=== PATIENT | male | born 1985 ===

== ENCOUNTER → 2020-07-15 10:40 | Outpatient (BNVA) | payer OTHER, SELFPAY | PROVIDERS: PCP Internal Medicine; Referring Provider Internal Medicine; Visit Provider Nurse Practitioner | DX: Z76.89 Persons encountering health services in other specified circumstances (principal) ==

== ENCOUNTER 2020-07-27 12:34 | Outpatient (REF) | payer OTHER, SELFPAY | END 2020-07-27 12:35 | disposition home or self-care (01) | LOC: HO.LAB 12:34 | PROVIDERS: Visit Provider Internal Medicine | DX: Z20.828 Contact with and (suspected) exposure to other viral communicable diseases (principal) | CPT/HCPCS: U0003 ==

== ENCOUNTER 2020-12-16 12:19 | Outpatient (REF) | payer OTHER, SELFPAY ==
[2020-12-16 13:19] LABS: COVID-19 Test Negative (Negative)
== END 2020-12-16 12:20 | disposition home or self-care (01) ==
LOC: HO.LAB 12:19
PROVIDERS: Visit Provider Internal Medicine
DX: Z20.822 Contact with and (suspected) exposure to COVID-19 (principal)
CPT/HCPCS: 36415; 87635; C9803

== ENCOUNTER → 2021-01-04 09:58 | Outpatient (BNVA) | payer OTHER, SELFPAY | PROVIDERS: PCP Internal Medicine; Visit Provider Nurse Practitioner ==

== ENCOUNTER 2021-01-10 10:10 | Outpatient (REF) | payer OTHER, SELFPAY ==
[2021-01-10 10:59] LABS: MANUAL DIFF FLAG NO
[2021-01-10 11:13] LABS: Basophils Percent Auto 0.2 % (0-2); Eosinophils Percent Auto 0.7 % (0-4); Hematocrit 41.6 % (42-52); Hemoglobin 13.8 g/dl (14.0-18.0); Imm Gran Abs Auto 0.02 X10*3/uL (0.00-0.03); Imm Gran Pct Auto 0.3 % (0.0-0.4); Lymphocytes Absolute Auto 1.7 X10*3/uL (1.2-4.9); Lymphocytes Percent Auto 28.8 % (20-40); Mean Corpuscular HGB Conc 33.2 g/dl (31.0-36.0); Mean Corpuscular Hemoglobin 29.5 pg (27.0-33.0); Mean Corpuscular Volume 88.9 fL (80-98); Mean Platelet Volume 9.8 fL (9.4-12.4); Monocytes Absolute Auto 0.6 X10*3/uL (0.1-1.2); Monocytes Percent Auto 9.3 % (2-11); Neutrophils Absolute Auto 3.6 X10*3/uL (2.0-8.3); Neutrophils Percent Auto 60.7 % (45-73); Platelet Count 317 X10*3/uL (160-400); Red Blood Count 4.68 X10*6/uL (4.60-5.80); Red Cell Distribution Width 11.8 % (11.0-16.0); White Blood Count 5.9 X10*3/uL (4.8-10.8)
[2021-01-10 11:31] LABS: Anion Gap 12 (12-20); Blood Urea Nitrogen 8 mg/dL (9-16); Calcium 9.3 mg/dL (8.4-10.2); Carbon Dioxide 27 mmol/L (22-29); Chloride 109 mmol/L (96-108); Estimated Glomerular Filt Rate > 60; Glucose Fasting 94 mg/dL (60-99); Potassium 4.2 mmol/L (3.3-5.1); Sodium 144 mmol/L (135-145)
== END 2021-01-10 10:11 | disposition home or self-care (01) ==
LOC: HO.LAB 10:10
PROVIDERS: Absent Provider Nurse Practitioner; PCP Internal Medicine; Visit Provider Nurse Practitioner Family
DX: T14.8XXA Other injury of unspecified body region, initial encounter (principal)
CPT/HCPCS: 36415; 80048; 85025

== ENCOUNTER 2021-01-12 10:42 | Outpatient (REF) | payer OTHER, SELFPAY | END 2021-01-12 10:43 | disposition home or self-care (01) | LOC: HO.LNP 10:42 | PROVIDERS: Visit Provider Nurse Practitioner | DX: R10.10 Upper abdominal pain, unspecified (principal); K21.9 Gastro-esophageal reflux disease without esophagitis | CPT/HCPCS: 87338 ==

== ENCOUNTER 2021-01-13 10:11 | Outpatient (REF) | payer OTHER, SELFPAY ==
--- NOTE | ~2021-01-13 | US_ITS ---
EXAMINATION: US ABDOMEN COMPLETE CLINICAL INFORMATION: Upper abdominal pain, unspecified. COMPARISON: CT abdomen and pelvis 10/12/2012. TECHNIQUE: Real-time imaging of the abdominal viscera. FINDINGS: PANCREAS: Normal. ABDOMINAL AORTA: The proximal, mid, and distal segments are normal in caliber. INFERIOR VENA CAVA: Visualized portions are normal. LIVER: Normal. The liver is normal in size. The liver contour is normal. Parenchymal echogenicity is normal. No focal hepatic lesion. There is no intrahepatic biliary duct dilatation seen. GALLBLADDER: Normal. The gallbladder is physiologically distended without evidence of stones, sludge, polyps, wall thickening or pericholecystic fluid. COMMON BILE DUCT: Normal in caliber measuring 0.4 cm in diameter. RIGHT KIDNEY: Mid pole stone measuring 0.3 cm. No hydronephrosis or focal parenchymal lesions. The kidney measures 9.5 cm in maximum dimension. LEFT KIDNEY: Mid pole stone measuring 0.4 cm. No hydronephrosis or focal parenchymal lesions. The kidney measures 10.9 cm in maximum dimension. SPLEEN: Normal. The spleen measures 9.2 cm in maximum dimension. FREE FLUID: None. US/US abdomen complete IMPRESSION: Small, nonobstructing bilateral renal stones measuring 0.3 cm on the right and 0.4 cm on the left. No hydronephrosis. Otherwise unremarkable examination.
== END 2021-01-13 10:12 | disposition home or self-care (01) ==
LOC: HO.US 10:11
PROVIDERS: Visit Provider Nurse Practitioner
DX: R10.10 Upper abdominal pain, unspecified (principal)
CPT/HCPCS: 76700

== ENCOUNTER → 2021-02-21 09:25 | Outpatient (BNVA) | payer OTHER, SELFPAY | PROVIDERS: PCP Internal Medicine; Visit Provider Nurse Practitioner ==

== ENCOUNTER 2021-05-23 09:59 | Outpatient (REF) | payer OTHER, SELFPAY ==
--- NOTE | ~2021-05-23 | XR_ITS ---
EXAMINATION: LUMBAR SPINE AND SACRUM AND COCCYX X-RAYS CLINICAL INFORMATION: Pain COMPARISON: Previous lumbar spine x-ray April 2015 TECHNIQUE: 3 views of the lumbar spine and 3 views of the sacrum and coccyx FINDINGS: Lumbar spine: There may be a transitional vertebral body segment or 6 lumbar-type vertebral bodies. Bone alignment is normal. No fracture or dislocation is seen. Disc spaces are normal. Sacrum and coccyx: Bone alignment is normal. No fracture or dislocation is seen. The sacroiliac joints are normal. The soft tissues are normal. XR/XR sacrum coccyx min 2V IMPRESSION: Unremarkable exam.
--- NOTE | ~2021-05-23 | XR_ITS ---
EXAMINATION: LUMBAR SPINE AND SACRUM AND COCCYX X-RAYS CLINICAL INFORMATION: Pain COMPARISON: Previous lumbar spine x-ray April 2015 TECHNIQUE: 3 views of the lumbar spine and 3 views of the sacrum and coccyx FINDINGS: Lumbar spine: There may be a transitional vertebral body segment or 6 lumbar-type vertebral bodies. Bone alignment is normal. No fracture or dislocation is seen. Disc spaces are normal. Sacrum and coccyx: Bone alignment is normal. No fracture or dislocation is seen. The sacroiliac joints are normal. The soft tissues are normal. XR/XR lumbar spine 2-3V IMPRESSION: Unremarkable exam.
== END 2021-05-23 10:00 | disposition home or self-care (01) ==
LOC: HO.XRAY 09:59
PROVIDERS: PCP Internal Medicine; Visit Provider Nurse Practitioner
DX: K21.9 Gastro-esophageal reflux disease without esophagitis (principal); K64.9 Unspecified hemorrhoids; M53.3 Sacrococcygeal disorders, not elsewhere classified; M54.5 Low back pain
CPT/HCPCS: 72100; 72220; 99212

== ENCOUNTER → 2021-10-31 13:38 | Outpatient (BNVA) | payer OTHER, SELFPAY | PROVIDERS: PCP Internal Medicine; Referring Provider Internal Medicine; Visit Provider Nurse Practitioner | DX: K21.9 Gastro-esophageal reflux disease without esophagitis (principal); K64.9 Unspecified hemorrhoids; M53.3 Sacrococcygeal disorders, not elsewhere classified | CPT/HCPCS: 99212 ==

== ENCOUNTER → 2022-05-02 08:07 | Outpatient (BNVA) | payer OTHER, SELFPAY | PROVIDERS: PCP Internal Medicine; Referring Provider Internal Medicine; Visit Provider Nurse Practitioner | DX: K21.9 Gastro-esophageal reflux disease without esophagitis (principal); M53.3 Sacrococcygeal disorders, not elsewhere classified; K64.9 Unspecified hemorrhoids; Q76.49 Other congenital malformations of spine, not associated with scoliosis; Z79.899 Other long term (current) drug therapy | CPT/HCPCS: 99212 ==

== ENCOUNTER 2022-08-06 21:43 | Emergency (ER) | payer OTHER, SELFPAY ==
[2022-08-06 21:49] VITALS: BP 176/92; PULSE 87; RESP 18; TEMP 36.9; O2SAT 98; BMI 29.8
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
[2022-08-07] MEDS: cephALEXin 500 MG CAPSULE PO (00:29)
[2022-08-07] MEDS: Fluorescein Sodium STRIP 1 STRIP EYE-BOTH (00:29)
[2022-08-07] MEDS: Ketorolac Tromethamine 30 MG/ML VIAL IVPUSH (00:30)
[2022-08-07] MEDS: Lidocaine 4 % Cream KIT 4 APPL TOPICAL (00:32)
== END 2022-08-07 01:15 | disposition home or self-care (01) ==
PROVIDERS: Emergency Provider Internal Medicine; PCP Internal Medicine
DX: T20.20XA Burn of second degree of head, face, and neck, unspecified site, initial encounter (principal); T31.0 Burns involving less than 10% of body surface; R51.9 Headache, unspecified; X08.8XXA Exposure to other specified smoke, fire and flames, initial encounter; Y93.9 Activity, unspecified; Y92.9 Unspecified place or not applicable; Y99.9 Unspecified external cause status; Z79.899 Other long term (current) drug therapy
CPT/HCPCS: 99283; J1885

== ENCOUNTER 2023-03-15 22:29 | Emergency (ER) | payer OTHER, SELFPAY ==
[2023-03-15 22:33] VITALS: BP 122/58; PULSE 78; RESP 18; TEMP 37.7; O2SAT 98; BMI 31.8
[2023-03-15 23:37] VITALS: BP 112/65; PULSE 73; RESP 16; TEMP 38; O2SAT 97
--- NOTE | 2023-03-15 23:42 | PC.NURSE ---
Assumed care of pt, temp 100.4, pt c/o generalized body aches9/10 for pain, flu, cpvod and strep swabs sent to lab.
--- NOTE | 2023-03-15 23:47 | ED.GENADULT ---
HPI - General Adult General Chief complaint: Fever Stated complaint: Dizziness not feeling well Time Seen by Provider: 03/15/23 23:46 Source: patient Mode of arrival: ambulatory Limitations: no limitations History of Present Illness HPI narrative: Patient was healthy been having joint pain low-grade fever body aches since yesterday no rash known tick bites had some mosquito bites. No abdominal pain no nausea no vomiting no other family member sick has occasional cough with sore throat feel weak and dizzy no urinary symptoms Related Data Previous Rx's Medication Instructions Recorded famotidine 40 mg tablet 40 mg PO BEDTIME #90 tabs 05/02/22 bacitracin zinc 500 unit/gram 1 appl topical BID #28 grams 08/07/22 topical ointment (Antibiotic (bacitracin zinc)) hydroquinone 4 % topical cream 1 appl topical DAILY 30 days #28.4 09/07/22 grams doxycycline hyclate 100 mg tablet 100 mg PO BID #20 tabs 03/16/23 ibuprofen 600 mg tablet 600 mg PO Q6H PRN fever or pain 03/16/23 #30 tabs Allergies Allergy/AdvReac Type Severity Reaction Status Date / Time No Known Allergies Allergy Verified 03/15/23 22:33 Review of Systems Review of Systems: Yes all other systems are reviewed and are negative [facility] Past Medical History Medical History Pulled muscle Surgical History No pertinent past surgical history Family History Family History Father Cancer Mother Alive and well Maternal Grandfather Hypotension CVD (cardiovascular disease) Son Alive and well Son Autism Maternal Grandmother Hypertension Social History Social History Housing: Apartment Alcohol intake: former Patient Tobacco Use Status: Never used Tobacco e-Cigarette/Vaping Use: Never Used Second Hand Smoke Exposure: No Advance Directives: No Advance Directives Information Provided: Yes service: No Current occupational status: unemployed Cognitive needs: No Hearing needs: No Vision needs: No Physical Exam ED Vital Signs: Vital Signs - 24 hr 03/16/23 01:45 Temperature 98.7 F Pulse Rate 73 Respiratory Rate 16 Blood Pressure 107/64 Pulse Oximetry 97 Oxygen Delivery Method Room Air BMI result Body Mass Index 31.8 Appearance: Alert. Oriented X3. No acute distress. Eyes: No pallor or icterus ENT: Pharynx normal. Oral Mucosa moist Neck: Normal inspection. Neck supple. CVS: Normal heart rate and rhythm. Pulses normal. Respiratory: No respiratory distress. Equal air entry bilateral, no wheezing/rales/rhonchi Abdomen: Soft and nontender. Bowel sounds are present, no mass palpable, no CVA tenderness Skin: Skin warm and dry. Normal skin color. Normal skin turgor. Extremities: No lower extremity edema. No calf tenderness no significant joint swelling Neuro: Oriented X 3. No motor deficit. No sensory deficit.No cerebellar signs , cranial nerves II-XII intact Medications Administered Discontinued Medications Generic Name Dose Route Start Last Admin Trade Name Freq PRN Reason Stop Dose Admin Sodium Chloride 1,000 mls @ 999 mls/hr 03/16/23 00:22 03/16/23 02:06 Ns IV 03/16/23 01:22 Infused .Q1H1M ONE Infusion Ketorolac Tromethamine 30 mg 03/16/23 00:27 03/16/23 00:44 Ketorolac Tromethamine 30 Mg/Ml Vial IVPUSH 03/16/23 00:28 30 mg ONCE ONE Administration Medical Decision Making Medical Decision Making [facility] Narrative: Patient likely viral fever/tick-borne disease/babesiosis/anaplasmosis Differential Diagnosis Differential Diagnoses: The differential diagnosis associated with the presentation includes COVID/tick-borne disease/mosquito bone disease/viral Lab Data [facility] Lab Attestation statement: I reviewed the patient's lab results. 03/16/23 00:57 03/16/23 00:57 Labs: Lab Results 03/15/23 03/15/23 03/15/23 Range/Units 23:35 23:35 23:35 WBC (4.8-10.8) X10*3/uL RBC (4.60-5.80) X10*6/uL Hgb (14.0-18.0) g/dl Hct (42.0-52.0) % MCV (80.0-98.0) fL MCH (27.0-33.0) pg MCHC (31.0-36.0) g/dl RDW (11.0-16.0) % Plt Count (160-400) X10*3/uL MPV (9.4-12.4) fL Immature Gran % (Auto) (0.0-0.4) % Neut % (Auto) (45-73) % Lymph % (Auto) (20-40) % Tate % (Auto) (2-11) % Eos % (Auto) (0-4) % Baso % (Auto) (0-2) % Lymph # (Auto) (1.2-4.9) X10*3/uL Tate # (Auto) (0.1-1.2) X10*3/uL Eos # (Auto) (0.0-0.4) X10*3/uL Baso # (Auto) (0.0-0.2) X10*3/uL Abs Immat Gran (auto) (0.00-0.03) X10*3/uL Absolute Neuts (auto) (2.0-8.3) x10*3/uL Absolute Nucleated RBC (0.0-0.012) X10*3/uL Nucleated RBC % (auto) (0.0-0.2) /100WBC Sodium (135-145) mmol/L Potassium (3.3-5.1) mmol/L Chloride (96-108) mmol/L Carbon Dioxide (22-29) mmol/L Anion Gap (12-20) BUN (9-16) mg/dL Creatinine (0.5-1.4) mg/dL Estim Creat Clear Calc Estimated GFR Random Glucose (60-115) mg/dL Calcium (8.4-10.2) mg/dL Magnesium (1.6-2.6) mg/dL Total Bilirubin (0.0-1.0) mg/dL AST (5-37) U/L ALT (0-40) U/L Alkaline Phosphatase (39-117) U/L Total Protein (6.5-8.0) g/dL Albumin (3.5-5.0) g/dL COVID-19 (CAILIN) Negative (Negative) COVID-19 Clin Com See Note Influenza Type A (MAURICE) Negative (Negative) Influenza Type B (MAURICE) Negative (Negative) Influenza A & B Note See Note S. pyogenes GrpA MAURICE Negative (Negative) 03/16/23 03/16/23 Range/Units 00:57 00:57 WBC 8.5 (4.8-10.8) X10*3/uL RBC 4.22 L (4.60-5.80) X10*6/uL Hgb 12.8 L (14.0-18.0) g/dl Hct 37.0 L (42.0-52.0) % MCV 87.7 (80.0-98.0) fL MCH 30.3 (27.0-33.0) pg MCHC 34.6 (31.0-36.0) g/dl RDW 11.5 (11.0-16.0) % Plt Count 241 (160-400) X10*3/uL MPV 9.3 L (9.4-12.4) fL Immature Gran % (Auto) 0.1 (0.0-0.4) % Neut % (Auto) 75.8 H (45-73) % Lymph % (Auto) 15.0 L (20-40) % Tate % (Auto) 8.9 (2-11) % Eos % (Auto) 0.1 (0-4) % Baso % (Auto) 0.1 (0-2) % Lymph # (Auto) 1.3 (1.2-4.9) X10*3/uL Tate # (Auto) 0.8 (0.1-1.2) X10*3/uL Eos # (Auto) 0.0 (0.0-0.4) X10*3/uL Baso # (Auto) 0.0 (0.0-0.2) X10*3/uL Abs Immat Gran (auto) 0.01 (0.00-0.03) X10*3/uL Absolute Neuts (auto) 6.5 (2.0-8.3) x10*3/uL Absolute Nucleated RBC 0.000 (0.0-0.012) X10*3/uL Nucleated RBC % (auto) 0.0 (0.0-0.2) /100WBC Sodium 138 (135-145) mmol/L Potassium 3.2 L D (3.3-5.1) mmol/L Chloride 106 (96-108) mmol/L Carbon Dioxide 25 (22-29) mmol/L Anion Gap 10 L (12-20) BUN 12 (9-16) mg/dL Creatinine 0.92 (0.5-1.4) mg/dL Estim Creat Clear Calc 109.5 Estimated GFR > 60 Random Glucose 93 (60-115) mg/dL Calcium 8.7 D (8.4-10.2) mg/dL Magnesium 1.8 (1.6-2.6) mg/dL Total Bilirubin 0.6 (0.0-1.0) mg/dL AST 15 (5-37) U/L ALT 18 (0-40) U/L Alkaline Phosphatase 71 (39-117) U/L Total Protein 6.3 L (6.5-8.0) g/dL Albumin 3.9 (3.5-5.0) g/dL COVID-19 (CAILIN) (Negative) COVID-19 Clin Com Influenza Type A (MAURICE) (Negative) Influenza Type B (MAURICE) (Negative) Influenza A & B Note S. pyogenes GrpA MAURICE (Negative) Discharge Plan Discharge Clinical Impression: Fever Patient Disposition: Home, Self-Care Instructions: Fever in Adults (ED) Additional Instructions: Cause of your not very clear Possible mosquito born disease/tick-borne disease Start taking doxycycline for now pending final culture and serologies Tylenol/Motrin for pain/ fever Prescriptions: New ibuprofen 600 mg tablet 600 mg PO Q6H PRN (Reason: fever or pain) Qty: 30 0RF doxycycline hyclate 100 mg tablet 100 mg PO BID Qty: 20 0RF No Action bacitracin zinc [Antibiotic (bacitracin zinc)] 500 unit/gram ointment 1 appl topical BID Qty: 28 1RF hydroquinone 4 % cream 1 appl topical DAILY 30 Days Qty: 28.4 0RF famotidine 40 mg tablet 40 mg PO BEDTIME Qty: 90 2RF Interventions: ED Discharge Assessment Last Done: 03/16/23 03:28 Discharge Date/Time: 03/16/23 03:29
[2023-03-15 23:54] LABS: COVID-19 Test Negative (Negative); IDNOW Serial# 9DB6401D
[2023-03-15 23:55] LABS: IDNOW Serial# BCCEAD1C; Influenza A Negative (Negative); Influenza B2 Negative (Negative)
[2023-03-16] LABS: IDNOW Serial# 08D9AD1C; Strep A Nucleic Acid Negative (Negative)
[2023-03-16] MEDS: 0.9 % Sodium Chloride 1,000 ML 999 ML IV (00:44)
[2023-03-16] MEDS: Ketorolac Tromethamine 30 MG/ML VIAL IVPUSH (00:44)
[2023-03-16 01:02] LABS: MANUAL DIFF FLAG NO
[2023-03-16 01:04] LABS: Basophils Percent Auto 0.1 % (0-2); Eosinophils Percent Auto 0.1 % (0-4); Hemoglobin 12.8 g/dl (14.0-18.0); Imm Gran Abs Auto 0.01 X10*3/uL (0.00-0.03); Imm Gran Pct Auto 0.1 % (0.0-0.4); Lymphocytes Absolute Auto 1.3 X10*3/uL (1.2-4.9); Mean Corpuscular HGB Conc 34.6 g/dl (31.0-36.0); Mean Corpuscular Hemoglobin 30.3 pg (27.0-33.0); Mean Corpuscular Volume 87.7 fL (80.0-98.0); Mean Platelet Volume 9.3 fL (9.4-12.4); Monocytes Absolute Auto 0.8 X10*3/uL (0.1-1.2); Monocytes Percent Auto 8.9 % (2-11); Neutrophils Absolute Auto 6.5 x10*3/uL (2.0-8.3); Neutrophils Percent Auto 75.8 % (45-73); Platelet Count 241 X10*3/uL (160-400); Red Blood Count 4.22 X10*6/uL (4.60-5.80); Red Cell Distribution Width 11.5 % (11.0-16.0); White Blood Count 8.5 X10*3/uL (4.8-10.8)
[2023-03-16 01:21] LABS: Alanine Aminotransferase 18 U/L (0-40); Albumin Level 3.9 g/dL (3.5-5.0); Alkaline Phosphatase 71 U/L (39-117); Anion Gap 10 (12-20); Aspartate Amino Transferase 15 U/L (5-37); Bilirubin Total 0.6 mg/dL (0.0-1.0); Blood Urea Nitrogen 12 mg/dL (9-16); Calcium 8.7 mg/dL (8.4-10.2); Carbon Dioxide 25 mmol/L (22-29); Chloride 106 mmol/L (96-108); Creatinine Clr Calc Pharmacy 109.5; Estimated Glomerular Filt Rate > 60; Glucose Random 93 mg/dL (60-115); Magnesium 1.8 mg/dL (1.6-2.6); Potassium 3.2 mmol/L (3.3-5.1); Sodium 138 mmol/L (135-145); Total Protein 6.3 g/dL (6.5-8.0)
[2023-03-16 01:45] VITALS: BP 107/64; PULSE 73; RESP 16; TEMP 37.1; O2SAT 97
[2023-03-31 16:09] LABS: A. Phagocytophilum Ab IgG <1:64 (<1:64); A. Phagocytophilum Ab IgM <1:20 (<1:20); E. Chaffeensis Ab IgG <1:64 (<1:64); E. Chaffeensis Ab IgM <1:20 (<1:20)
[2023-04-01 12:23] LABS: Babesia IgG <1:64 titer (<1:64); Babesia IgM <1:20 titer (<1:20)
== END 2023-03-16 03:29 | disposition home or self-care (01) ==
PROVIDERS: Emergency Provider Internal Medicine
DX: R50.9 Fever, unspecified (principal); M79.10 Myalgia, unspecified site; Z20.822 Contact with and (suspected) exposure to COVID-19
CPT/HCPCS: 36415; 80053; 83735; 85025; 86666; 86753; 87207; 87502; 87635; 87651; 96361; 96374; 99284; J1885

== ENCOUNTER 2023-04-03 09:24 | Outpatient (AMB) | payer OTHER, SELFPAY ==
[2023-04-03 09:28] VITALS: BP 112/86; PULSE 86; O2SAT 100; BMI 27.6
--- NOTE | 2023-04-03 09:28 | MHC.PC.OV ---
Vital Signs 04/03/23 09:28 Height 5 ft 4 in Weight 161 lb BMI 27.6 BP 112/86 Blood Pressure Location Lt brachial Position Sitting Pulse 86 Pulse Source Pulse Oximeter Temp Source Skin Pulse Oximetry (%) 100 Oxygen Delivery Method Room Air Intake Visit Reasons: Opthalmology Referral-Eye Sight Issues Intake Note: pt states referral needed for opthamology Allergies No Known Allergies Allergy (Verified 04/03/23 09:35) Medication List - Last Reconciled 04/03/23 by KAPIL Thorne famotidine 40 mg PO BEDTIME hydroquinone 4% 1 appl topical DAILY 30 days ibuprofen 600 mg PO Q6H PRN Tobacco use date assessed: 04/03/23 Dental Screening Dental Screen Date: 04/03/23 HPI Opthalmology Referral-Eye Sight Issues HPI Details Patient is a 37-year-old male who presents today for ophthalmology referral. Patient of Dr. Wall. Medical history significant for GERD, low back pain. Patient reports that he has hard time reading up close for the past 1 month, denies difficulty seeing in the distance, denies eye pain, eye injury, discharge from his eyes, sensitivity to light, headache, or vision loss. Did not have eye exam in the past. Denies vision changes in the past. [facility] Medical History Pulled muscle Surgical History No pertinent past surgical history Family History Father Cancer Mother Alive and well Maternal Grandfather Hypotension CVD (cardiovascular disease) Son Alive and well Son Autism Maternal Grandmother Hypertension Social History Housing: Apartment Alcohol intake: former Patient Tobacco Use Status: Never used Tobacco e-Cigarette/Vaping Use: Never Used Second Hand Smoke Exposure: No service: No Current occupational status: unemployed Cognitive needs: No Hearing needs: No Vision needs: No Questionnaire PHQ-9 Over the last 2 weeks, how often have you been bothered by any of the following problems? 1. Little interest or pleasure in doing things: not at all 2. Feeling down, depressed, or hopeless: not at all 3. Trouble falling or staying asleep, or sleeping too much: not at all 4. Feeling tired or having little energy: not at all 5. Poor appetite or overeating: not at all 6. Feeling bad about yourself - or that you are a failure or have let yourself or your family down: not at all 7. Trouble concentrating on things, such as reading the newspaper or watching television: not at all 8. Moving or speaking so slowly that other people could have noticed. Or the opposite - being so fidgety or restless that you have been moving around a lot more than usual: not at all 9. Thoughts that you would be better off or of hurting yourself in some way: not at all Total score: 0 Depression Screening Interpretation: Negative 30959 - PHQ-9 Billing: Yes Source: Developed by Drs. Ko Hernandez, Myrna Astudillo, Stas Carter and colleagues, with an educational manju from [employer]. Thrive Questionnaire Date Thrive assessed: 09/07/22 AUDIT C Alcohol Use Questionnaire (AUDIT-C) 1. How often do you have a drink containing alcohol?: Never Total Score: 0 Score Reviewed/Action Taken: No IRINEO-7 AMB Questionnaire IRINEO-7 Date IRINEO - 7 assessed: 09/07/22 Source: Developed by Drs. Ko Hernandez, Myrna Astudillo, Stas Carter and colleagues, with an educational manju from [employer]. Review of Systems Const Denies body aches, Denies chills, Denies fever(s) and Denies headache(s) Eyes Reports as per HPI and Reports change in vision ENT Denies dizziness, Denies otalgia, Denies headache(s), Denies nasal discharge, Denies sinus pain and Denies sore throat Card Denies chest pain, Denies edema, Denies lightheadedness and Denies dyspnea Resp Denies cough, Denies dyspnea and Denies wheezing GI Denies constipation, Denies diarrhea, Denies nausea and Denies vomiting Denies dysuria Musc Denies myalgias Skin/Breast Denies rash Neuro Denies dizziness and Denies headache(s) Aller/Immun Denies wheezing Physical exam (Primary Care) Vital Signs: Last Vital Signs Pulse 86 04/03/23 09:28 BP 112/86 04/03/23 09:28 Pulse Ox 100 04/03/23 09:28 Oxygen Delivery Method Room Air 04/03/23 09:28 BMI result Body Mass Index 27.6 Tobacco/Smoking Status: Tobacco use Status Tobacco use date assessed 04/03/23 04/03/23 09:33 Patient Tobacco Use Status Never used Tobacco 04/03/23 09:33 e-Cigarette/Vaping Use Never Used 04/03/23 09:33 PHQ-9: PHQ-9 Score PHQ-9: Total score 0 04/03/23 09:33 Depression Screening Interpretation: Negative Thrive Assessment: Date of Thrive Assessment Date Thrive assessed 09/07/22 04/03/23 09:33 Const General: cooperative and no acute distress Orientation/consciousness: patient oriented x3 HENMT Head: Yes normocephalic and Yes atraumatic Face and sinus: Yes sinuses nontender Mouth: oropharynx normal and moist mucous membranes Throat: Yes posterior oropharynx normal Eyes General: appearance normal, both eyes and all related structures Pupils: Equal, round and reactive pupils present EOM: EOMs intact bilaterally Neck Neck: Yes normal visual inspection, Yes full ROM and Yes no lymphadenopathy Resp Effort & Inspection: normal respiratory effort and able to speak in complete sentences Auscultation: clear to auscultation bilaterally, no crackles, no rales, no rhonchi and no wheezes Cardio Rate: regular rate Rhythm: regular rhythm Heart sounds: S1 normal heart sound present and S2 normal heart sound present GI Auscultation: normal bowel sounds Skin General skin exam: no rashes or lesions noted Neuro General: patient oriented x3 Cranial nerves: Yes Equal, round and reactive pupils present Gait exam (Neuro): Normal gait present Extrem General: Yes full ROM Assessment and Plan Assessment & Plan (1) Vision changes: Code(s): H53.9 - Unspecified visual disturbance Plan: Ophthalmology referral for an evaluation and treatment Signs and symptoms reviewed when to notify provider or go to the emergency department Patient agreed with the plan Orders: Referrals Ophthalmology Referral H53.9 - Unspecified visual disturbance Coding Level of Care Code Est Pt Level 3 (95571) Diagnoses Vision changes H53.9
== END 2023-04-03 09:56 | disposition home or self-care (01) ==
PROVIDERS: PCP Internal Medicine; Visit Provider Nurse Practitioner Family
DX: H53.9 Unspecified visual disturbance (principal)
CPT/HCPCS: 99213

== ENCOUNTER 2024-01-31 12:29 | Outpatient (AMB) | payer OTHER, SELFPAY ==
[2024-01-31 13:05] VITALS: BP 110/80; PULSE 64; TEMP 36.5; O2SAT 98; BMI 27.1
--- NOTE | 2024-01-31 13:05 | MHC.OFFWIV ---
Intake Vital Signs 01/31/24 13:05 Height 5 ft 4 in Weight 158 lb BMI 27.1 BP 110/80 Blood Pressure Location Lt brachial Position Sitting Pulse 64 Pulse Source Pulse Oximeter Temp 97.7 F Temp Source Temporal Artery Scan Pulse Oximetry (%) 98 Oxygen Delivery Method Room Air Intake Visit Reasons: est/ allergy around lip ?Hemorrhoids Intake Note: pt is here today for allergy around lip 2 days ago and hemorrhoids started 3 weeks ago Patient Tobacco Use Status: Never used Tobacco Behavioral Health Specialist: Present Allergies No Known Allergies Allergy (Verified 01/31/24 13:08) Do you need a note to return to daycare/school/sports/work: No HPI HPI Comments History of Present Illness Details 38 y/o male patient who presents to walk in clinic with few concerns. Pt reports itching and rectal pain after shaving. He also reports cold sores on the bottom lips. Pt also believes he has hemorrhoids. [facility] Medical History Pulled muscle Surgical History No pertinent past surgical history Family History Father Cancer Mother Alive and well Maternal Grandfather Hypotension CVD (cardiovascular disease) Son Alive and well Son Autism Maternal Grandmother Hypertension Social History Housing: Apartment Alcohol intake: former Patient Tobacco Use Status: Never used Tobacco e-Cigarette/Vaping Use: Never Used Second Hand Smoke Exposure: No service: No Current occupational status: unemployed Cognitive needs: No Hearing needs: No Vision needs: No Review of Systems Const All systems reviewed & are unremarkable except as noted in HPI and below Physical Exam Vital Signs: Last Vital Signs Temp 97.7 F 01/31/24 13:05 Pulse 64 01/31/24 13:05 BP 110/80 01/31/24 13:05 Pulse Ox 98 01/31/24 13:05 Oxygen Delivery Method Room Air 01/31/24 13:05 BMI result Body Mass Index 27.1 GI Rectal Exam - Male: Yes normal sphincter tone and Yes External hemorrhoid(s) present Skin Other: Group of small vesicles lower lip Assessment & Plan Assessment & Plan (1) Acute hemorrhoid: Code(s): K64.9 - Unspecified hemorrhoids Plan: - Prescribed Cortisone cream - Keep the area clean and dry. (2) HSV (herpes simplex virus) infection: Code(s): B00.9 - Herpesviral infection, unspecified Plan: - Take Valtrex as prescribed - May use OTC Abbreva cream Medications: New hydrocortisone 1% (Cortisone (hydrocortisone)) 1 appl topical BEDTIME PRN 28.35 grams 0RF skin irritation K64.9 - Unspecified hemorrhoids valacyclovir (Valtrex) 1,000 mg PO DAILY 10 tabs 0RF B00.9 - Herpesviral infection, unspecified Coding Level of Care Code Est Pt Level 3 (21551) Diagnoses Acute hemorrhoid K64.9 HSV (herpes simplex virus) infection B00.9 Time Spent (min) 15
== END 2024-01-31 14:05 | disposition home or self-care (01) ==
PROVIDERS: Visit Provider Nurse Practitioner Family
DX: K64.9 Unspecified hemorrhoids (principal); B00.9 Herpesviral infection, unspecified
CPT/HCPCS: 99213

== ENCOUNTER 2024-06-17 16:33 | Emergency (ER) | payer OTHER, SELFPAY ==
--- NOTE | ~2024-06-17 | XR_ITS ---
EXAMINATION: XR CHEST CLINICAL INFORMATION: Chest pain. COMPARISON: Chest radiograph from 03/06/2013. TECHNIQUE: 2 views of the chest were obtained (PA and lateral). FINDINGS: The lungs are well expanded. No evidence of focal consolidation, pleural effusion, pulmonary edema, or pneumothorax. The cardiomediastinal silhouette is within normal limits. No acute osseous abnormalities. XR/XR chest 2V IMPRESSION: No radiographically evident acute pulmonary abnormalities. Electronically signed by: Cali Cruz DO 06/17/2024 06:36 PM EDT
[2024-06-17 16:55] VITALS: BP 125/88; PULSE 70; RESP 18; TEMP 36.8; O2SAT 98; BMI 25.2
--- NOTE | 2024-06-17 17:20 | ED_ITS ---
HPI - Back Pain/Injury General Chief Complaint: Extremity Injury, Lower Stated Complaint: Burning sensation on legs radiating to back Time Seen by Provider: 06/17/24 22:06 Source: patient Mode of arrival: ambulatory Limitations: no limitations History of Present Illness ED Provider: yaquelin OSORIO Narrative: The patient is a 38-year-old male, who presents with a atraumatic right low back pain times 3 days. Patient states he woke in the middle of the night, with pain in the right upper extremity that radiates to the low back. The pain is described as a burning sensation. Patient denies heavy lifting, overuse injury, new exercise or activity. No bladder or bowel involvement no history of diabetes no weakness No preceding trauma patient also complaining of sharp chest pain Related Data Previous Rx's ?Medication ?Instructions ?Recorded famotidine 40 mg tablet 40 mg PO BEDTIME #90 tabs 05/02/22 hydroquinone 4 % topical cream 1 appl topical DAILY 30 days #28.4 09/07/22 grams ibuprofen 600 mg tablet 600 mg PO Q6H PRN fever or pain 03/16/23 #30 tabs hydrocortisone 1 % topical cream 1 appl topical BEDTIME PRN skin 01/31/24 (Cortisone (hydrocortisone)) irritation #28.35 grams valacyclovir 1 gram tablet 1,000 mg PO DAILY #10 tabs 01/31/24 (Valtrex) meloxicam 15 mg tablet 15 mg PO DAILY #7 tabs 06/17/24 methocarbamol 750 mg tablet 750 mg PO QID PRN pain #20 tabs 06/17/24 Allergies Allergy/AdvReac Type Severity Reaction Status Date / Time No Known Allergies Allergy Verified 06/17/24 17:00 Review of Systems 2 Review of Systems: Yes all other systems are reviewed and are negative [facility] Past Medical History Medical History Pulled muscle Surgical History No pertinent past surgical history Family History Family History Father Cancer Mother Alive and well Maternal Grandfather Hypotension CVD (cardiovascular disease) Son Alive and well Son Autism Maternal Grandmother Hypertension Social History Social History Housing: Apartment Alcohol intake: never Patient Tobacco Use Status: Never used Tobacco e-Cigarette/Vaping Use: Never Used Second Hand Smoke Exposure: No service: No Current occupational status: unemployed Cognitive needs: No Hearing needs: No Vision needs: No Physical Exam 2 Vital Signs: Vital Signs: Last Vital Signs Temp 97.2 F 06/17/24 23:35 Pulse 55 06/17/24 23:35 Resp 16 06/17/24 23:35 BP 121/75 06/17/24 23:35 Pulse Ox 99 06/17/24 23:35 O2 Del Method Room Air 06/17/24 23:35 BMI result Body Mass Index 25.2 Appearance: Alert. Oriented X3. No acute distress. ENT: Pharynx normal. Oral Mucosa moist Neck: Normal inspection. Neck supple. CVS: Normal heart rate and rhythm. Pulses normal. Respiratory: No respiratory distress. Equal air entry bilateral, no wheezing/rales/rhonchi Abdomen: Soft and nontender. Bowel sounds are present, no mass palpable, no CVA tenderness Skin: Skin warm and dry. Normal skin color. Normal skin turgor. Extremities: No lower extremity edema. No calf tenderness SLR negative bilaterally peripheral pulses normal Neuro: Oriented X 3. No motor deficit. No sensory deficit.No cerebellar signs , cranial nerves II-XII intact Course Course Course Narrative: This is a rapid medical exam performed by Lou Santillan PA-C. The patient is a 38-year-old male, who presents with a atraumatic right low back pain times 3 days. Patient states he woke in the middle of the night, with pain in the right upper extremity that radiates to the low back. The pain is described as a burning sensation. Patient denies heavy lifting, overuse injury, new exercise or activity. No preceding trauma. In addition patient states he is becoming anxious and that he has developed chest discomfort. On exam, the patient ambulates with a normal steady gait, his strength is 5/5 bilateral lower extremities. I was going to treat the patient for sciatica, however he is fixated on his chest pain at this time. I am going to initiate an ACS workup at this time. The patient is stable and can return to the waiting room pending his full assessment. Medications Administered Discontinued Medications Generic Name Dose Route Start Last Admin Trade Name Freq PRN Reason Stop Dose Admin Cyclobenzaprine HCl 10 mg 06/17/24 23:22 06/17/24 23:29 Cyclobenzaprine Hcl 10 Mg Tablet PO 06/17/24 23:23 10 mg ONCE ONE Administration Medical Decision Making Medical Decision Making [facility] Narrative: Patient with nonspecific pain in both lower extremity CPK negative labs are stable will give him flexeril Differential Diagnosis Differential Diagnoses: The differential diagnosis associated with the presentation includes Sciatica/neuropathy/hypomagnesemia/rhabdomyolysis Lab Data [facility] Lab Attestation statement: I reviewed the patient's lab results. 06/17/24 18:55 06/17/24 18:55 Labs: Lab Results 06/17/24 Range/Units 18:55 WBC 6.6 (4.8-10.8) X10*3/uL RBC 4.84 (4.60-5.80) X10*6/uL Hgb 14.9 (14.0-18.0) g/dl Hct 42.5 (42.0-52.0) % MCV 87.8 (80.0-98.0) fL MCH 30.8 (27.0-33.0) pg MCHC 35.1 (31.0-36.0) g/dl RDW 11.5 (11.0-16.0) % Plt Count 289 (160-400) X10*3/uL MPV 9.3 L (9.4-12.4) fL Immature Gran % (Auto) 0.2 (0.0-0.4) % Neut % (Auto) 58.9 (45-73) % Lymph % (Auto) 29.1 (20-40) % [place] % (Auto) 10.1 (2-11) % Eos % (Auto) 1.4 (0-4) % Baso % (Auto) 0.3 (0-2) % Lymph # (Auto) 1.9 (1.2-4.9) X10*3/uL [place] # (Auto) 0.7 (0.1-1.2) X10*3/uL Eos # (Auto) 0.1 (0.0-0.4) X10*3/uL Baso # (Auto) 0.0 (0.0-0.2) X10*3/uL Abs Immat Gran (auto) 0.01 (0.00-0.03) X10*3/uL Absolute Neuts (auto) 3.9 (2.0-8.3) x10*3/uL Absolute Nucleated RBC 0.000 (0.0-0.012) X10*3/uL Nucleated RBC % (auto) 0.0 (0.0-0.2) /100WBC Sodium 142 (135-145) mmol/L Potassium 3.7 (3.3-5.1) mmol/L Chloride 105 (96-108) mmol/L Carbon Dioxide 28 (22-29) mmol/L Anion Gap 13 (12-20) BUN 10 (9-16) mg/dL Creatinine 0.94 (0.5-1.4) mg/dL Estim Creat Clear Calc 98.0 Estimated GFR > 60 Random Glucose 95 (60-115) mg/dL Calcium 9.4 D (8.4-10.2) mg/dL Magnesium 2.2 (1.6-2.6) mg/dL Total Bilirubin 0.4 (0.0-1.0) mg/dL AST 30 (5-37) U/L ALT 37 (0-40) U/L Alkaline Phosphatase 78 (39-117) U/L Total Creatine Kinase 139 (38-174) U/L Troponin I High Sens < 2.7 (<3.5-35.0) ng/L Total Protein 7.2 (6.5-8.0) g/dL Albumin 4.5 (3.5-5.0) g/dL Independent Interpretation I performed an independent interpretation of an: Plain X-Ray Radiology Impression Discussion of test interpretation with radiology: I have reviewed the radiologist's reading. Discharge Plan Discharge Clinical Impression: Sciatica of right side Patient Disposition: Home, Self-Care Instructions: Sciatica (ED) Additional Instructions: You are being treated for sciatica. See home care instructions. Use a muscle relaxant for pain, this will cause drowsiness, you should not drive or operate machinery while taking the medication. Take the anti-inflammatory as directed. You need to follow up with your primary care, if your symptoms persist, you may require physical therapy as an outpatient. Prescriptions: New meloxicam 15 mg tablet 15 mg PO DAILY Qty: 7 0RF methocarbamol 750 mg tablet 750 mg PO QID PRN (Reason: pain) Qty: 20 0RF No Action ibuprofen 600 mg tablet 600 mg PO Q6H PRN (Reason: fever or pain) Qty: 30 0RF hydroquinone 4 % cream 1 appl topical DAILY 30 Days Qty: 28.4 0RF valacyclovir [Valtrex] 1 gram tablet 1,000 mg PO DAILY Qty: 10 0RF hydrocortisone [Cortisone (hydrocortisone)] 1 % cream 1 appl topical BEDTIME PRN (Reason: skin irritation) Qty: 28.35 0RF famotidine 40 mg tablet 40 mg PO BEDTIME Qty: 90 2RF Interventions: ED Discharge Assessment Last Done: 06/17/24 23:35 Discharge Date/Time: 06/17/24 23:37 Print Language: Panamanian
--- NOTE | 2024-06-17 17:24 | ECG_ITS ---
Test Reason : pain Blood Pressure : / mmHG Vent. Rate : 056 BPM Atrial Rate : 056 BPM P-R Int : 126 ms QRS Dur : 080 ms QT Int : 418 ms P-R-T Axes : 060 045 037 degrees QTc Int : 403 ms Sinus bradycardia Otherwise normal ECG When compared with ECG of 06-MAR-2013 00:15, No significant change was found Referred By: Lou Santillan Electronically Signed By:Efrain Meier
--- NOTE | 2024-06-17 17:26 | PC.NURSE ---
upon discharging patient, states he is having chest pain and would like to be seen for this - reporting he has been having increased anxiety and chest pain and would like to be worked up for it.
[2024-06-17 19:02] LABS: Basophils Percent Auto 0.3 % (0-2); Eosinophils Absolute Auto 0.1 X10*3/uL (0.0-0.4); Eosinophils Percent Auto 1.4 % (0-4); Hematocrit 42.5 % (42.0-52.0); Hemoglobin 14.9 g/dl (14.0-18.0); Imm Gran Abs Auto 0.01 X10*3/uL (0.00-0.03); Imm Gran Pct Auto 0.2 % (0.0-0.4); Lymphocytes Absolute Auto 1.9 X10*3/uL (1.2-4.9); Lymphocytes Percent Auto 29.1 % (20-40); MANUAL DIFF FLAG NO; Mean Corpuscular HGB Conc 35.1 g/dl (31.0-36.0); Mean Corpuscular Hemoglobin 30.8 pg (27.0-33.0); Mean Corpuscular Volume 87.8 fL (80.0-98.0); Mean Platelet Volume 9.3 fL (9.4-12.4); Monocytes Absolute Auto 0.7 X10*3/uL (0.1-1.2); Monocytes Percent Auto 10.1 % (2-11); Neutrophils Absolute Auto 3.9 x10*3/uL (2.0-8.3); Neutrophils Percent Auto 58.9 % (45-73); Platelet Count 289 X10*3/uL (160-400); Red Blood Count 4.84 X10*6/uL (4.60-5.80); Red Cell Distribution Width 11.5 % (11.0-16.0); White Blood Count 6.6 X10*3/uL (4.8-10.8)
[2024-06-17 19:20] LABS: Albumin Level 4.5 g/dL (3.5-5.0); Anion Gap 13 (12-20); Bilirubin Total 0.4 mg/dL (0.0-1.0); Blood Urea Nitrogen 10 mg/dL (9-16); Calcium 9.4 mg/dL (8.4-10.2); Carbon Dioxide 28 mmol/L (22-29); Chloride 105 mmol/L (96-108); Estimated Glomerular Filt Rate > 60; Glucose Random 95 mg/dL (60-115); Magnesium 2.2 mg/dL (1.6-2.6); Potassium 3.7 mmol/L (3.3-5.1); Sodium 142 mmol/L (135-145); Total Protein 7.2 g/dL (6.5-8.0)
[2024-06-17 19:21] LABS: Alkaline Phosphatase 78 U/L (39-117); Aspartate Amino Transferase 30 U/L (5-37)
[2024-06-17 19:31] LABS: Troponin-I High Sensitivity < 2.7 ng/L (<3.5-35.0)
[2024-06-17 19:32] LABS: Alanine Aminotransferase 37 U/L (0-40)
[2024-06-17 19:36] VITALS: BP 121/69; PULSE 58; RESP 16; TEMP 36.9; O2SAT 100
[2024-06-17 22:14] VITALS: BP 121/75; PULSE 55; RESP 16; TEMP 36.2; O2SAT 99
[2024-06-17] MEDS: Cyclobenzaprine HCl 10 MG TABLET PO (23:29)
[2024-06-17 23:35] VITALS: BP 121/75; PULSE 55; RESP 16; TEMP 36.2; O2SAT 99
== END 2024-06-17 23:37 | disposition home or self-care (01) ==
PROVIDERS: Physician Assistant Medical; Emergency Provider Internal Medicine; PCP Internal Medicine
DX: M54.41 Lumbago with sciatica, right side (principal); R07.89 Other chest pain; R00.1 Bradycardia, unspecified; Z79.899 Other long term (current) drug therapy
CPT/HCPCS: 36415; 71046; 80053; 82550; 83735; 84484; 85025; 93005; 99283; 99284

== ENCOUNTER → 2024-06-17 17:24 | Outpatient (BNV) | payer OTHER, SELFPAY | PROVIDERS: Emergency Provider Internal Medicine; PCP Internal Medicine; Visit Provider Internal Medicine Cardiovascular Disease | DX: R00.1 Bradycardia, unspecified (principal) | CPT/HCPCS: 93010 ==

== ENCOUNTER 2024-07-09 13:23 | Outpatient (AMB) | payer OTHER, SELFPAY ==
[2024-07-09 13:25] VITALS: BP 110/80; PULSE 75; O2SAT 97; BMI 25.9
--- NOTE | 2024-07-09 13:25 | MHC.PC.OV ---
Vital Signs 07/09/24 13:25 Height 5 ft 6 in Weight 160 lb 8 oz BMI 25.9 BP 110/80 Blood Pressure Location Lt brachial Position Sitting Pulse 75 Pulse Source Pulse Oximeter Pulse Oximetry (%) 97 Oxygen Delivery Method Room Air Intake Visit Reasons: [facility] [place] 06/17 leg/back pain Certified Surgical Tech/First Assistant Required: No Accompanied by: Self / Same As Patient Allergies No Known Allergies Allergy (Verified 07/09/24 13:25) Tobacco use date assessed: 07/09/24 Dental Screening Dental Screen Date: 07/09/24 Did you have a dental visit in the last 12 months?: Yes Did you have a dental problem in the last 6 months where you did not have access to dental care?: No Was dental information given to patient?: Patient has dentist HPI HPI Comments History of Present Illness Details 38 y/o male patient who presents to the clinic today for EDF. He was admitted at [facility] [place] on 06/17/24 and discharged home the same day. Pt reports right sided lower back pain, numbness and tingling, radiating down his sciatica nerve (lower leg/foot). Pt willing to try Physical therapy. Pt c/o painful, thick and discolored great toe Nails on B/L feet. [facility] Medical History Pulled muscle Surgical History No pertinent past surgical history Family History Father Cancer Mother Alive and well Maternal Grandfather Hypotension CVD (cardiovascular disease) Son Alive and well Son Autism Maternal Grandmother Hypertension Social History Housing: Apartment Alcohol intake: never Patient Tobacco Use Status: Never used Tobacco e-Cigarette/Vaping Use: Never Used Second Hand Smoke Exposure: No service: No Current occupational status: unemployed Cognitive needs: No Hearing needs: No Vision needs: No Questionnaire PHQ-9 Over the last 2 weeks, how often have you been bothered by any of the following problems? 1. Little interest or pleasure in doing things: not at all 2. Feeling down, depressed, or hopeless: not at all 3. Trouble falling or staying asleep, or sleeping too much: not at all 4. Feeling tired or having little energy: not at all 5. Poor appetite or overeating: not at all 6. Feeling bad about yourself - or that you are a failure or have let yourself or your family down: not at all 7. Trouble concentrating on things, such as reading the newspaper or watching television: not at all 8. Moving or speaking so slowly that other people could have noticed. Or the opposite - being so fidgety or restless that you have been moving around a lot more than usual: not at all 9. Thoughts that you would be better off or of hurting yourself in some way: not at all Total score: 0 Depression Screening Interpretation: Negative Depression Screening Done: Yes 18750 - PHQ-9 Billing: Yes Source: Developed by Drs. Ko Hernandez, Myrna Astudillo, Stas Carter and colleagues, with an educational manju from [employer]. Thrive Questionnaire Date Thrive assessed: 07/09/24 I am a: Patient What is your living situation today?: I have a steady place to live Within the past 12 months, did the food you bought not last and you didn't have the money to get more?: Never true Within the past 12 months, did you worry whether your food would run out before you got money to buy more?: Never true Do you have trouble paying for medicines?: No Do you have trouble getting transportation to medical appointments?: No Do you have trouble paying your heating and electricity bill?: No Do you have trouble taking care of your child, family member or friend?: No Do you have trouble with day-to-day activities such as bathing, preparing meals, shopping, managing finances, etc.?: No Are you currently unemployed and looking for a job?: No Are you interested in more education?: No Please select the resources that you would like help with: None Currently or been in a relationship where the following occur: No concerns reported THRIVE Score: 0 AUDIT C Alcohol Use Questionnaire (AUDIT-C) 1. How often do you have a drink containing alcohol?: Never Total Score: 0 Score Reviewed/Action Taken: No IRINEO-7 AMB Questionnaire IRINEO-7 Date IRINEO - 7 assessed: 07/09/24 Feeling nervous, anxious, or on edge: 0 = Not at all Not being able to stop or control worryin = Not at all Worrying too much about different things: 0 = Not at all Trouble relaxin = Not at all Being so restless that it is hard to sit still: 0 = Not at all Becoming easily annoyed or irritable: 0 = Not at all Feeling afraid as if something awful might happen: 0 = Not at all Total IRINEO-7 score (0-4 normal; 5-9 mild; 10-14 moderate; 15-21 severe): 0 Source: Developed by Drs. Ko Hernandez, Myrna Astudillo, Stas Carter and colleagues, with an educational manju from [employer]. Review of Systems Const All systems reviewed & are unremarkable except as noted in HPI and below Physical exam (Primary Care) Tobacco/Smoking Status: Tobacco use Status Tobacco use date assessed 04/03/23 06/18/24 12:22 Patient Tobacco Use Status Never used Tobacco 06/18/24 12:22 e-Cigarette/Vaping Use Never Used 06/18/24 12:22 Depression Screening Interpretation: Negative Thrive Assessment: Date of Thrive Assessment Date Thrive assessed 09/07/22 06/18/24 12:22 Currently or been in a relationship where the following occur: No concerns reported Const General: cooperative, comfortable and no acute distress Orientation/consciousness: patient oriented x3 Limitations: language barrier Back/Spine/Pelvis Back: back tenderness Thoracic/Lumbar Spine: thoraco-lumbar ROM normal, thoraco-lumbar spasm and lumbar spinal tenderness Skin General skin exam: no rashes or lesions noted Nails: discolored and yellow and thickened (B/L great Toe Nails - onychomycosis) Neuro General: patient oriented x3, gait normal and moves all extremities Coding Level of Care Code Est Pt Level 4 (30765) Diagnoses Sciatica of right side M54.31 Onychomycosis B35.1 Additional Codes PHQ-9 - 17365 - PHQ-9 Billing: Yes ([id number]) Time Spent (min) 20 Assessment & Plan Assessment & Plan (1) Sciatica of right side: Code(s): M54.31 - Sciatica, right side Plan: Ordered PT for his back. (2) Onychomycosis: Code(s): B35.1 - Tinea unguium Plan: Placed referral to Orders: Orders PT Evaluation and Treatment Today M54.31 - Sciatica, right side Referrals Podiatry Referral B35.1 - Tinea unguium
== END 2024-07-09 13:45 | disposition home or self-care (01) ==
PROVIDERS: PCP Internal Medicine; Visit Provider Nurse Practitioner Family
DX: M54.31 Sciatica, right side (principal); B35.1 Tinea unguium

== ENCOUNTER → 2024-07-09 13:23 | Outpatient (BNVA) | payer OTHER, SELFPAY | PROVIDERS: PCP Internal Medicine; Visit Provider Nurse Practitioner Family | DX: M54.31 Sciatica, right side (principal); B35.1 Tinea unguium | CPT/HCPCS: 96127; 99212 ==

== ENCOUNTER 2024-07-30 07:59 | Outpatient (AMB) | payer OTHER, SELFPAY ==
[2024-07-30 08:10] VITALS: BP 118/78; BMI 26.1
--- NOTE | 2024-07-30 08:10 | A.OFFPC_ITS ---
Vital Signs 07/30/24 08:10 Height 5 ft 6 in Weight 162 lb BMI 26.1 BP 118/78 Blood Pressure Location Lt brachial Position Sitting Intake Visit Reasons: follow up Intake Note: Patient here for a follow up sciatica, anxiety Outside Medical Sales Representative Required: No Accompanied by: Self / Same As Patient Allergies No Known Allergies Allergy (Verified 07/30/24 08:41) Medication List - Last Reconciled 07/30/24 by Mallory Blake MD famotidine 40 mg PO BEDTIME hydrocortisone 1% (Cortisone (hydrocortisone)) 1 appl topical BEDTIME PRN hydroquinone 4% 1 appl topical DAILY 30 days ibuprofen 600 mg PO Q6H PRN meloxicam 15 mg PO DAILY methocarbamol 750 mg PO QID PRN valacyclovir (Valtrex) 1,000 mg PO DAILY Tobacco use date assessed: 07/09/24 Dental Screening Dental Screen Date: 07/09/24 HPI HPI Comments History of Present Illness Details The patient is a 38-year-old male presenting with exacerbation of right leg sciatica pain, cold-induced myalgia, and onychomycosis. The patient reports an initial episode of sciatica pain that began in the right leg and subsequently radiated to the lower back. He had sought emergency care for this issue in the past and was provided muscle relaxants and meloxicam, which helped alleviate the symptoms. The patient denies any urinary incontinence or other complications related to the sciatica pain. He mentions noticing muscle pain exacerbated by c old conditions, affecting both his hands and feet, leading to swelling of the bones and discomfort. The patient also presents with onychomycosis described as a toenail fungus causing an unusual growth in his toenails. The patient uses famotidine 40 mg as needed for heartburn and ibuprofen for pain as necessary. He does not smoke or drink alcohol. [facility] Medical History (Updated 07/30/24 @ 12:32 by Mallory Blake MD) Pulled muscle Surgical History No pertinent past surgical history Family History Father Cancer Mother Alive and well Maternal Grandfather Hypotension CVD (cardiovascular disease) Son Alive and well Son Autism Maternal Grandmother Hypertension Social History (Updated 07/30/24 @ 08:46 by Mallory Blake MD) Housing: Apartment Alcohol intake: current Alcohol intake frequency: holidays/special occasions only Alcohol type: beer Patient Tobacco Use Status: Never used Tobacco e-Cigarette/Vaping Use: Never Used Second Hand Smoke Exposure: No service: No Current occupational status: unemployed Cognitive needs: No Hearing needs: No Vision needs: No Questionnaire Thrive Questionnaire Date Thrive assessed: 07/09/24 IRINEO-7 AMB Questionnaire IRINEO-7 Date IRINEO - 7 assessed: 07/30/24 Feeling nervous, anxious, or on edge: 1 = Several days Not being able to stop or control worryin = Not at all Worrying too much about different things: 1 = Several days Trouble relaxin = Several days Being so restless that it is hard to sit still: 1 = Several days Becoming easily annoyed or irritable: 0 = Not at all Feeling afraid as if something awful might happen: 0 = Not at all Total IRINEO-7 score (0-4 normal; 5-9 mild; 10-14 moderate; 15-21 severe): 4 Source: Developed by Drs. Ko Hernandez, Myrna Astudillo, Stas Carter and colleagues, with an educational manju from [employer]. Review of Systems Const All systems reviewed & are unremarkable except as noted in HPI and below Card Denies chest pain at rest, Denies chest pain with activity, Denies edema, Denies irregular heart rhythm, Denies claudication, Denies dyspnea, Denies dyspnea on exertion, Denies orthopnea, Denies paroxysmal nocturnal dyspnea and Denies slow heart rate Resp Denies cough, Denies dyspnea and Denies dyspnea on exertion Musc Reports back pain and Reports radiating pain into limb Skin/Breast Reports nail changes Physical exam (Primary Care) Vital Signs: Last Vital Signs BP 118/78 07/30/24 08:10 BMI result Body Mass Index 26.1 Tobacco/Smoking Status: Tobacco use Status Tobacco use date assessed 07/09/24 07/30/24 08:15 Patient Tobacco Use Status Never used Tobacco 07/30/24 08:46 e-Cigarette/Vaping Use Never Used 07/30/24 08:46 Thrive Assessment: Date of Thrive Assessment Date Thrive assessed 07/09/24 07/30/24 08:15 Resp Effort & Inspection: normal respiratory effort Auscultation: clear to auscultation bilaterally Cardio Jugular venous distension: no JVD Rate: regular rate Rhythm: regular rhythm Heart sounds: S1 normal heart sound present and S2 normal heart sound present Extrem General: Yes full ROM Office Procedures Flu Questionnaire Does the patient have a severe egg allergy?: No Immunizations Fluarix Triv [id number] (PF) 45 mcg (15 mcg x 3)/0.5 mL IM syringe Performing Provider: Mallory Blake MD [facility] [place] [facility] Documented (not given) by: NOHEMY Madison on 07/30/24 08:25 Reason Not Given: Patient Refused Coding Level of Care Code Est Pt Level 4 (52958) Complex EM visit Add On G2211 Diagnoses Onychomycosis B35.1 Low back pain M54.5 Gastroesophageal reflux disease, unspecified whether esophagitis present K21.9 Esophagitis presence: esophagitis presence not specified Myalgia M79.10 Time Spent (min) 20 Assessment & Plan Assessment & Plan (1) Onychomycosis: Code(s): B35.1 - Tinea unguium Category: Medical (2) Low back pain: Code(s): M54.5 - Low back pain Category: Medical (3) GERD (gastroesophageal reflux disease): Code(s): K21.9 - Gastro-esophageal reflux disease without esophagitis Category: Medical Qualifiers: Esophagitis presence: esophagitis presence not specified Qualified Code(s): K21.9 - Gastro-esophageal reflux disease without esophagitis (4) Myalgia: Code(s): M79.10 - Myalgia, unspecified site Category: Medical Plan - Sciatica: Utilize metocarbamol PRN for back pain management. Recommend physical therapy for sustained relief. Follow up on referral status due to issues with the medical plan. - Onychomycosis: Initiate treatment with terbinafine after baseline liver function testing due to potential hepatotoxicity. Repeat liver tests upon completion of therapy. - Cold-induced myalgia: Monitor symptoms and consider further evaluation if condition persists or worsens. - Heartburn: Continue using famotidine 40 mg PRN. Patient was informed and verbally consented to the use of an ambient scribe for clinic note documentation during this visit. I discussed with the patient the likely diagnosis of sciatica and the management options, including the use of metocarbamol for recurrent episodes. We emphasized the importance of physical therapy, especially given issues with previous referral follow-ups. For onychomycosis, we agreed on initiating terbinafine treatment with pre-treatment and post-treatment liver function monitoring due to potential risks. Additionally, we talked about the symptoms experienced due to cold exposure and the need for monitoring. Follow-up lab work was assigned to ensure suitability for antifungal treatment. I underscored the need for regular reviews to monitor progress and reassess treatment efficacy. Orders: Orders Influenza [id number] Immunization Today Z23 - Encounter for immunization PT Evaluation and Treatment 07/09/24 M54.31 - Sciatica, right side Liver Panel Today B35.1 - Tinea unguium Referrals Podiatry Referral B35.1 - Tinea unguium Medications: New terbinafine HCl 250 mg PO DAILY 90 tabs 0RF 90 days B35.1 - Tinea unguium Refilled meloxicam 15 mg PO DAILY 7 tabs 0RF methocarbamol 750 mg PO QID PRN 20 tabs 0RF pain Patient Instructions: - Take metocarbamol as needed for back pain. - Ensure baseline liver function tests are completed before starting terbinafine therapy. - Use terbinafine as prescribed for a 90-day course for toenail fungus; follow up with repeat labs upon completion. - Continue famotidine as needed for heartburn. - Attend physical therapy sessions once follow-up on referral is confirmed. - Monitor symptoms of cold-induced myalgia; return if worsening occurs.
== END 2024-07-30 08:54 | disposition home or self-care (01) ==
PROVIDERS: PCP Internal Medicine; Visit Provider Internal Medicine
DX: B35.1 Tinea unguium (principal); M54.50 Low back pain, unspecified; K21.9 Gastro-esophageal reflux disease without esophagitis; M79.10 Myalgia, unspecified site; Z23 Encounter for immunization

== ENCOUNTER 2024-07-30 07:59 | Outpatient (REF) | payer OTHER, SELFPAY ==
[2024-07-30 11:21] LABS: Alanine Aminotransferase 28 U/L (0-40); Albumin Level 4.7 g/dL (3.5-5.0); Alkaline Phosphatase 82 U/L (39-117); Aspartate Amino Transferase 24 U/L (5-37); Bilirubin Direct 0.1 mg/dL (0.0-0.5); Bilirubin Total 0.4 mg/dL (0.0-1.0); Total Protein 7.7 g/dL (6.5-8.0)
== END 2024-07-30 08:00 | disposition home or self-care (01) ==
LOC: HO.LAB 07:59
PROVIDERS: PCP Internal Medicine; Visit Provider Internal Medicine
DX: B35.1 Tinea unguium (principal); M54.50 Low back pain, unspecified; M54.31 Sciatica, right side; K21.9 Gastro-esophageal reflux disease without esophagitis; M79.10 Myalgia, unspecified site; Z79.899 Other long term (current) drug therapy
CPT/HCPCS: 36415; 80076; 90471; 96127; 99212